=== PATIENT | female | born 1960 | race Caucasian/White ===

== ENCOUNTER → 2017-02-27 | Outpatient (CLI) | payer MEDICARE ==
[2016-04-13 17:07] VITALS: BP 160/87
[~2017-02-27] MED LIST: ALBU18HF IH; ALBU8.5H8 IH; ALPR1TAB6 PO; CALC-507 PO; CHOL100014 PO; CYCL-331 PO; DICL50TA4 PO; DULO60CA6 PO; FLUT1DIS3 IH; FLUT9.9S NS; MECL-51 PO; META-21 PO; RANI300C PO; TRAM50TA PO; VENL75CA PO; ZOLP12.52 PO
--- NOTE | 2017-02-27 16:43 | RAD ---
4 view cervical spine series History: Chronic neck pain since injury a few years ago. Findings: No acute fracture or discitis or osteolytic process or prevertebral soft tissue swelling is evident. There is moderate degenerative disc space narrowing and endplate spurring at C4-5 and C5-6 and C6-7. IMPRESSION: Degenerative cervical spondylosis.
== END | disposition home or self-care (01) ==
LOC: RAD 12:15
PROVIDERS: ATTEND General Practice
DX: M47.892 Other spondylosis, cervical region (principal); S19.9XXD Unspecified injury of neck, subsequent encounter; X58.XXXD Exposure to other specified factors, subsequent encounter
CPT/HCPCS: 72040

== ENCOUNTER → 2017-06-08 | Outpatient (CLI) | payer MEDICARE, OTHER ==
[2016-04-13 17:07] VITALS: BP 160/87
--- NOTE | 2017-06-08 14:39 | RAD ---
DATE: 06/08/2017. EXAM: MAMMO KAYLAN SCREENING BILATERAL. HISTORY: Routine mammographic screening. COMPARISON: 03/24/2015, 08/18/2014. This study was interpreted with the benefit of Computerized Aided Detection (CAD). FINDINGS: The breast parenchyma is heterogeneously dense, which could reduce sensitivity of mammography. Breast parenchyma level C.. There are no suspicious masses, microcalcifications or architectural distortion. Scattered calcifications are benign. The parenchymal pattern is stable. BI-RADS CATEGORY: 1 NEGATIVE. RECOMMENDED FOLLOW-UP: 12M 12 MONTH FOLLOW-UP. PQRS compliance statement: Patient information was entered into a reminder system with a target due date 06/08/2018 for the next mammogram. Mammography is a sensitive method for finding small breast cancers, but it does not detect them all and is not a substitute for careful clinical examination. A negative mammogram does not negate a clinically suspicious finding and should not result in delay in biopsying a clinically suspicious abnormality. "Our facility is accredited by the [employer] Mammography [employer]."
== END | disposition home or self-care (01) ==
LOC: MAMMO 13:03
PROVIDERS: ATTEND General Practice
DX: Z12.31 Encounter for screening mammogram for malignant neoplasm of breast (principal)
CPT/HCPCS: 77063; 77067

== ENCOUNTER → 2018-01-03 | Outpatient (CLI) | payer OTHER ==
[2016-04-13 17:07] VITALS: BP 160/87
[2018-01-03 15:23] LABS: BASO # 0.1 x10^3/uL (0.0-0.2); BASO % 1 % (0-3); EOS # 0.3 x10^3/uL (0.0-0.7); EOS % 3 % (0-3); HEMATOCRIT 42.3 % (36.0-47.0); HEMOGLOBIN 14.4 g/dL (12.0-15.5); LYMPH # 2.6 x10^3/uL (1.0-4.8); LYMPH % 29 % (24-48); MEAN CORPUSCULAR HEMOGLOBIN 31 pg (25-35); MEAN CORPUSCULAR HGB CONC 34 g/dL (31-37); MEAN CORPUSCULAR VOLUME 90 fL (79-100); MONO # 0.6 x10^3/uL (0.0-1.1); MONO % 7 % (0-9); NEUT # 5.4 x10^3uL (1.8-7.7); NEUT % 60 % (31-73); PLATELET COUNT 310 x10^3/uL (140-400); RED BLOOD COUNT 4.68 x10^6/uL (3.50-5.40); RED CELL DISTRIBUTION WIDTH 13.2 % (11.5-14.5)
[2018-01-03 15:30] LABS: ALBUMIN 3.6 g/dL (3.4-5.0); CALCIUM 8.9 mg/dL (8.5-10.1); CREATININE 0.9 mg/dL (0.6-1.0); GFR 64.3; POTASSIUM 3.7 mmol/L (3.5-5.1); TOTAL BILIRUBIN 0.5 mg/dL (0.2-1.0); TOTAL PROTEIN 7.1 g/dL (6.4-8.2)
[2018-01-04 03:10] LABS: T3 TOTAL 90 ng/dL (71-180); THYROPEROXIDASE ANTIBODY 16 IU/mL (0-34); THYROXINE 6.4 ug/dL (4.5-12.0)
[2018-01-04 04:08] LABS: HEMOGLOBIN A1C 5.5 % (4.8-5.6)
== END | disposition home or self-care (01) ==
LOC: LAB 14:27
PROVIDERS: ATTEND General Practice
DX: E04.1 Nontoxic single thyroid nodule (principal); F41.9 Anxiety disorder, unspecified
CPT/HCPCS: 36415; 80053; 83036; 84436; 84443; 84480; 85025; 86376; 86800

== ENCOUNTER → 2018-11-08 | Outpatient (CLI) | payer OTHER ==
[2016-04-13 17:07] VITALS: BP 160/87
[~2018-11-08] MED LIST changes: -ALBU18HF IH; +ALBU2.5V8 IH; -ALBU8.5H8 IH
--- NOTE | 2018-11-08 16:17 | RAD ---
DATE: 11/08/2018. EXAM: Bilateral mammogram. HISTORY: Routine screening. COMPARISON: Previous mammogram from 2018. This study was interpreted with the benefit of Computerized Aided Detection (CAD). FINDINGS: Breast Density: HETERO The breast parenchyma Is heterogeneously dense, which could reduce sensitivity of mammography. Breast parenchyma level C. The skin and nipple are within normal limits. No suspicious calcifications, spiculated mass or area of architectural distortion. IMPRESSION: No mammographic evidence of malignancy. Stable mammogram. BI-RADS CATEGORY: 2 BENIGN FINDING(S) RECOMMENDED FOLLOW-UP: 12M 12 MONTH FOLLOW-UP PQRS compliance statement: Patient information was entered into a reminder system with a target due date for the next mammogram. Mammography is a sensitive method for finding small breast cancers, but it does not detect them all and is not a substitute for careful clinical examination. A negative mammogram does not negate a clinically suspicious finding and should not result in delay in biopsying a clinically suspicious abnormality. "Our facility is accredited by the [employer] Mammography [employer]."
--- NOTE | 2018-11-08 16:23 | RAD ---
US SOFT TISSUE HEAD AND NECK CLINICAL INDICATION: History of thyroid nodule. PROCEDURE: Transverse and longitudinal grayscale and color Doppler images of the thyroid were obtained. COMPARISON: 08/02/2012. FINDINGS: Right: The right thyroid lobe measures 4.0 x 1.5 x 1.1 cm. Isthmus: Measures 5 mm in thickness and is top normal in size. Left: The left thyroid lobe measures 4.0 x 1.3 x 1.0 cm. Bilateral hypoechoic to anechoic nodules are seen in the thyroid lobes, the largest on the right side measuring 0.3 x 0.4 x 0.4 cm and on the left side measuring 0.3 x 0.2 x 0.1 cm. IMPRESSION: Bilateral sub-5 mm nodules some of which may be colloid cysts. Follow-up ultrasound in one year recommended. Electronically signed by: Nilesh Truong DO (11/08/2018 4:20 PM) [facility]
== END | disposition home or self-care (01) ==
LOC: MAMMO 13:13
PROVIDERS: ATTEND General Practice
DX: Z12.31 Encounter for screening mammogram for malignant neoplasm of breast (principal); E04.2 Nontoxic multinodular goiter; Z86.39 Personal history of other endocrine, nutritional and metabolic disease
CPT/HCPCS: 76536; 77063; 77067

== ENCOUNTER → 2019-11-15 | Outpatient (CLI) | payer MEDICARE ==
[2016-04-13 17:07] VITALS: BP 160/87
--- NOTE | 2019-11-15 15:43 | RAD ---
AP and Lateral Views of the Chest 11/15/2019 10:40 AM Indication: Reason: PRODUCTIVE COUGH / Spl. Instructions: / History: Comparison: None Findings: There is no focal consolidation or infiltrate identified. The cardiomediastinal silhouette is within normal limits. There is no evidence of pneumothorax or pleural effusion. No acute osseous abnormalities are identified. Impression: No evidence of acute cardiopulmonary process. Electronically signed by: Jerrell Gandhi MD (11/15/2019 3:40 PM) [id number]
== END ==
LOC: PMG 10:34
PROVIDERS: ATTEND Physician Assistant
DX: R05 Cough (principal)
CPT/HCPCS: 71046

== ENCOUNTER 2020-02-09 05:27 | Emergency (ER) | payer MEDICARE ==
[~2020-02-09] VITALS: Ht 157.5 cm; Wt 106.6 kg
--- NOTE | 2020-02-09 05:45 | EKG ---
[facility] ED 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
--- NOTE | 2020-02-09 06:16 | RAD ---
AP chest. HISTORY: Chest pain, cough AP view was taken of the chest. Lungs are clear. Heart is normal in size. There is no pleural effusion. IMPRESSION: 1. No acute chest disease. Electronically signed by: Niko Turner MD (02/09/2020 6:13 AM) [id number]
[2020-02-09] MEDS ORDERED: OMEP40CA45 PO (06:21)
[2020-02-09] MEDS ORDERED: ADVAIR INH (06:21)
[2020-02-09 06:23] LABS: BASO # 0.1 x10^3/uL (0.0-0.2); BASO % 1 % (0-3); EOS # 0.4 x10^3/uL (0.0-0.7); EOS % 4 % (0-3); HEMATOCRIT 41.3 % (36.0-47.0); HEMOGLOBIN 13.9 g/dL (12.0-15.5); LYMPH # 4.1 x10^3/uL (1.0-4.8); LYMPH % 42 % (24-48); MEAN CORPUSCULAR HEMOGLOBIN 31 pg (25-35); MEAN CORPUSCULAR HGB CONC 34 g/dL (31-37); MEAN CORPUSCULAR VOLUME 91 fL (79-100); MONO # 0.8 x10^3/uL (0.0-1.1); MONO % 8 % (0-9); NEUT # 4.4 x10^3uL (1.8-7.7); NEUT % 45 % (31-73); PLATELET COUNT 251 x10^3/uL (140-400); RED BLOOD COUNT 4.51 x10^6/uL (3.50-5.40); RED CELL DISTRIBUTION WIDTH 13.3 % (11.5-14.5); WHITE BLOOD COUNT 9.7 x10^3/uL (4.0-11.0)
--- NOTE | 2020-02-09 06:25 | PHYS DOC ---
Past History Past Medical History: Anxiety, Arthritis, Fibromyalgia, Other Past Surgical History: Hysterectomy, Oophorectomy, Tubal ligation Alcohol Use: Occasionally Drug Use: Opiates General Adult EDM: Chief Complaint: CHEST PAIN HPI: HPI: 59-year-old female coming in for chest pain and vomiting starting this morning. Last night she had a little bit of stomach upset and took a Tums. This morning felt like she had a burning sensation in her chest and it was worse with breathing, also had a weird taste in her mouth. She tried a nebulizer treatment with improvement. Has a history of chronic bronchitis. Is worried that she may have aspirated. No personal cardiac history, pretension, diabetes, tobacco use, dyslipidemia. No significant family cardiac history. Review of Systems: Review of Systems: Constitutional: Denies fever or chills Eyes: Denies change in visual acuity HENT: Denies nasal congestion or sore throat Respiratory: Has cough and pain with breathing Cardiovascular: Chest pain GI: Denies abdominal pain, nausea, vomiting, bloody stools or diarrhea : Denies dysuria Musculoskeletal: Denies back pain or joint pain Integument: Denies rash Neurologic: Denies headache, focal weakness or sensory changes Endocrine: Denies polyuria or polydipsia Lymphatic: Denies swollen glands Psychiatric: Denies depression or anxiety Heart Score: HEART Score for Chest Pain: HEART Score for Chest Pain Response (Comments) Value History Slighlty/Non-Suspicious 0 Age >45 - < 65 1 Risk Factors 1 or 2 Risk Factors 1 Troponin < Normal Limit 0 Total 2 Risk Factors: Risk Factors: DM, Current or recent (<one month) smoker, HTN, HLP, family history of CAD, obesity. Risk Scores: Score 0 - 3: 2.5% MACE over next 6 weeks - Discharge Home Score 4 - 6: 20.3% MACE over next 6 weeks - Admit for Clinical Observation Score 7 - 10: 72.7% MACE over next 6 weeks - Early Invasive Strategies Current Medications: Current Meds: Current Medications Medications (Trade) Dose Ordered Sig/Diaz Start Time Stop Time Status Last Admin Dose Admin Multi-Ingredient Mouthwash/Gargle (Gi Cocktail) 20 ml 1X ONCE 02/09/20 06:30 02/09/20 06:31 Allergies: Allergies: Allergies Coded Allergies Type Severity Reaction Last Updated Verified gabapentin Allergy Severe 01/19/15 Yes sulfamethoxazole Allergy Severe Swelling 01/19/15 Yes trimethoprim Allergy Severe Swelling 01/19/15 Yes latex Allergy Unknown Unknown 01/19/15 Yes Uncoded Allergies Type Severity Reaction Last Updated Verified PCN Allergy Severe Hives 01/19/15 CONTRAST DYE Allergy Unknown Unknown 01/19/15 SULFA Allergy Unknown Unknown 01/19/15 Physical Exam: PE: Constitutional: Well developed, well nourished, no acute distress, non-toxic appearance. [] Obese HENT: Normocephalic, atraumatic, bilateral external ears normal, oropharynx moist, no oral exudates, nose normal. [] Eyes: PERRLA, EOMI, conjunctiva normal, no discharge. [] Neck: Normal range of motion, no tenderness, supple, no stridor. [] Cardiovascular:Heart rate regular rhythm, no murmur [] Lungs & Thorax: Bilateral breath sounds equal with slight inspiratory wheezes Abdomen: Bowel sounds normal, soft, no tenderness, no masses, no pulsatile masses. [] Skin: Warm, dry, no erythema, no rash. [] Back: No tenderness, no CVA tenderness. [] Extremities: No tenderness, no cyanosis, no clubbing, ROM intact, no edema. [] Neurologic: Alert and oriented X 3, normal motor function, normal sensory function, no focal deficits noted. [] Psychologic: Affect normal, judgement normal, mood normal. [] Current Patient Data: Vital Signs: Vital Signs Date Time Temp Pulse Resp B/P (MAP) Pulse Ox O2 Delivery O2 Flow Rate FiO2 02/09/20 05:35 97.7 89 22 155/87 (109) 97 Room Air EKG: EKG: NSR, HR 86, no ectopy, no ST elevation for depression , normal intervals and axis[] Radiology/Procedures: Radiology/Procedures: AP chest. HISTORY: Chest pain, cough AP view was taken of the chest. Lungs are clear. Heart is normal in size. There is no pleural effusion. IMPRESSION: 1. No acute chest disease. [] Course & Med Decision Making: Course & Med Decision Making Pertinent Labs and Imaging studies reviewed. (See chart for details) Work-up unremarkable, heart score 2. Pain greatly improved with GI cocktail. Give dose of steroids for patient's cough and feeling she is developing a bronchitis. [] Dragon Disclaimer: Dragon Disclaimer: This electronic medical record was generated, in whole or in part, using a voice recognition dictation system. Departure Departure: Impression: Primary Impression: Chest pain Additional Impressions: Reflux esophagitis Bronchitis Disposition: 01 DC HOME SELF CARE/HOMELESS Condition: STABLE Referrals: JOSE MACE (PCP) Patient Instructions: Diet for Gastroesophageal Reflux Disease, Adult JUAN PERALTA MD Feb 09, 2020 06:25
[2020-02-09] MEDS ORDERED: MELO7.5T29 PO (06:27)
[2020-02-09] MEDS ORDERED: HYDR-2759 PO (06:27)
[2020-02-09] MEDS ORDERED: ASPI1TAB31 PO (06:27)
[2020-02-09] MEDS ORDERED: ALPR0.5T6 PO (06:27)
[2020-02-09] MEDS ORDERED: ZOLP10TA PO (06:27)
[2020-02-09 06:30] LABS: CREATININE 0.9 mg/dL (0.6-1.0); GFR 63.9; POTASSIUM 3.5 mmol/L (3.5-5.1)
[2020-02-09] MEDS ORDERED: LIDO:MAALOX 1:1 20 ML SINGLE DOSE. PO ONE (06:30)
[2020-02-09 06:36] LABS: ALBUMIN 3.7 g/dL (3.4-5.0); ALBUMIN/GLOBULIN RATIO 1.1 (1.0-1.7); TOTAL BILIRUBIN 0.2 mg/dL (0.2-1.0)
[2020-02-09 07:06] VITALS: BP 168/63
[2020-02-09] MEDS ORDERED: DEXAMETHASONE SOD PHOS 10 MG/ML VIAL. IV ONE (07:15)
== END 2020-02-09 07:30 | disposition home or self-care (01) ==
LOC: ER 05:27
DX: K21.00 Gastro-esophageal reflux disease with esophagitis, without bleeding (principal); J40 Bronchitis, not specified as acute or chronic; R07.1 Chest pain on breathing; R11.10 Vomiting, unspecified; F41.9 Anxiety disorder, unspecified; M19.90 Unspecified osteoarthritis, unspecified site; M79.7 Fibromyalgia; Z91.040 Latex allergy status; Z88.1 Allergy status to other antibiotic agents; Z88.8 Allergy status to other drugs, medicaments and biological substances
CPT/HCPCS: 36415; 71045; 80053; 84484; 85025; 93005; 96374; 99285; J1100

== ENCOUNTER → 2020-04-23 | Outpatient (CLI) | payer MEDICARE ==
[~2020-04-23] MED LIST changes: +ADVAIR INH; +ALPR0.5T6 PO; +ASPI1TAB31 PO; +HYDR-2759 PO; +MELO7.5T29 PO; +OMEP40CA45 PO; +ZOLP10TA PO
[2020-04-23 11:28] LABS: BASO # 0.1 x10^3/uL (0.0-0.2); BASO % 1 % (0-3); EOS # 0.4 x10^3/uL (0.0-0.7); EOS % 4 % (0-3); HEMATOCRIT 44.6 % (36.0-47.0); HEMOGLOBIN 14.9 g/dL (12.0-15.5); LYMPH # 2.8 x10^3/uL (1.0-4.8); LYMPH % 29 % (24-48); MEAN CORPUSCULAR HEMOGLOBIN 30 pg (25-35); MEAN CORPUSCULAR HGB CONC 33 g/dL (31-37); MEAN CORPUSCULAR VOLUME 91 fL (79-100); MONO # 0.7 x10^3/uL (0.0-1.1); MONO % 7 % (0-9); NEUT # 5.7 x10^3uL (1.8-7.7); NEUT % 59 % (31-73); PLATELET COUNT 279 x10^3/uL (140-400); RED BLOOD COUNT 4.89 x10^6/uL (3.50-5.40); RED CELL DISTRIBUTION WIDTH 13.2 % (11.5-14.5); WHITE BLOOD COUNT 9.6 x10^3/uL (4.0-11.0)
[2020-04-23 11:36] LABS: ALBUMIN 3.8 g/dL (3.4-5.0); C REACTIVE PROTEIN 3.9 mg/L (0-3.3); GFR 56.6; MAGNESIUM 2.1 mg/dL (1.8-2.4); TOTAL BILIRUBIN 0.4 mg/dL (0.2-1.0); TOTAL PROTEIN 7.5 g/dL (6.4-8.2)
[2020-04-23 11:45] LABS: BILIRUBIN,URINE NEG (NEG); CLARITY,URINE HAZY; COLOR,URINE YELLOW; GLUCOSE,URINE NEG (NEG); NITRITE,URINE NEG (NEG); UROBILINOGEN,URINE 0.2 mg/dL (0.2 mg/dL); WBC,URINE 20-40 /HPF (0-4)
[2020-04-23 11:46] LABS: BACTERIA,URINE MOD /HPF (0-FEW); SQUAMOUS EPITHELIAL CELL,UR MANY /LPF
[2020-04-23 16:01] LABS: THYROID STIM HORMONE (TSH) 2.547 uIU/mL (0.358-3.740)
== END ==
LOC: LAB 10:03
PROVIDERS: ATTEND Internal Medicine Rheumatology
DX: M79.7 Fibromyalgia (principal); M19.91 Primary osteoarthritis, unspecified site; E55.9 Vitamin D deficiency, unspecified; Z79.899 Other long term (current) drug therapy
CPT/HCPCS: 36415; 80053; 80061; 81001; 82306; 82550; 83735; 84443; 85025; 86140; 87086

== ENCOUNTER → 2020-06-26 | Outpatient (CLI) | payer MEDICARE ==
--- NOTE | 2020-06-26 16:46 | RAD ---
Study: XR [id number]_RT 1-2 VIEWS Indication: Knee pain. Comparison: None. Findings: Mild lateral and minimal medial femorotibial compartment joint space narrowing. Tiny patellar osteoph ytes. Findings involving the patellar articular surface suggestive of overlying chondrosis. Small pat ellar enthesophytes. No acute fracture or traumatic malalignment. Potential small joint effusion with hazy increased attenuation at the suprapatellar recess. Impression: 1. No acute osseous abnormality. 2. Mild degenerative changes as outlined above. Electronically signed by: AIRELLE MARQUEZ MD (06/26/2020 4:44 PM) [facility]
== END ==
LOC: PMG 12:11
PROVIDERS: ATTEND Physician Assistant
DX: M17.11 Unilateral primary osteoarthritis, right knee (principal)
CPT/HCPCS: 73560

== ENCOUNTER → 2021-03-11 | Outpatient (CLI) | payer MEDICARE ==
[~2021-03-11] MED LIST changes: -CYCL-331 PO; +CYCL10TA19 PO; -DULO60CA6 PO; +DULO60CA7 PO; -OMEP40CA45 PO; +OMEP40CA7 PO
--- NOTE | 2021-03-11 16:28 | RAD ---
Bilateral digital screening 2-D and 3-D (tomosynthesis) mammogram: Reason for examination: Routine screening. Comparison is made to mammograms from 11/08/2018, 06/08/2017. Bilateral mammograms in CC and oblique projections were obtained with 2-D imaging and 3-D tomosynthes is imaging and reviewed on the workstation. Interpretation was made with the benefit of CAD. Findings: Breast density: Category C. The breasts are heterogeneously dense, which may obscure small masses. There are no suspicious masses, malignant appearing calcifications or architectural distortion. Impression: No evidence of malignancy. ASSESSMENT: BI-RADS 1. Recommendations: Routine screening mammograms. This patient's information has been entered into a reminder system for the patient to be notified wit h the results of her examination and a target date for the next mammogram. Your patient's mammogram demonstrates that she has dense breast tissue (breast density category C or D), which could hide abnormalities, and if she has other risk factors for breast cancer that have bee n identified, she might benefit from supplemental screening tests that may be suggested by you as her ordering physician. Dense breast tissue, in and of itself, is a relatively common condition. Therefo re, this information is not provided to cause undue concern, but rather to raise your awareness and t o promote discussion with your patient regarding the presence of other risk factors, in addition to d ense breast tissue. Electronically signed by: Yoselin Live MD (03/11/2021 4:26 PM) [id number]
== END ==
LOC: MAMMO 08:30
PROVIDERS: ATTEND Physician Assistant
DX: Z12.31 Encounter for screening mammogram for malignant neoplasm of breast (principal); N64.89 Other specified disorders of breast
CPT/HCPCS: 77063; 77067